=== PATIENT | female | born 1980 | race Caucasian/White ===

== ENCOUNTER 2018-07-08 10:21 | Outpatient (CLI) | payer OTHER | END 2018-07-08 10:24 | disposition home or self-care (01) | LOC: SONOGRAMA 10:21 | DX: N84.0 Polyp of corpus uteri (principal) ==

== ENCOUNTER 2019-08-11 09:26 | Outpatient (CLI) | payer OTHER | END 2019-08-11 09:29 | disposition home or self-care (01) | LOC: SONOGRAMA 09:26 | DX: N93.8 Other specified abnormal uterine and vaginal bleeding (principal) ==